=== PATIENT | female | born 1995 | race Caucasian/White ===

== ENCOUNTER 2017-06-15 07:29 | Emergency (ER) | payer SELFPAY ==
[~2017-06-15] VITALS: Ht 157.5 cm; Wt 61.0 kg
[2017-06-15] MEDS ORDERED: IBUPROFEN 600MG TABLET PO STA (08:09)
[2017-06-15 11:15] VITALS: BP 112/78
== END 2017-06-15 11:17 | disposition home or self-care (01) ==
LOC: ER 08:00
DX: S93.402A Sprain of unspecified ligament of left ankle, initial encounter (principal); W10.9XXA Fall (on) (from) unspecified stairs and steps, initial encounter
CPT/HCPCS: 73610; 99284

== ENCOUNTER 2017-12-13 13:37 | Emergency (ER) | payer MEDICAID ==
[~2017-12-13] VITALS: Ht 160 cm; Wt 62.0 kg
[2017-12-13] MEDS ORDERED: IBUPROFEN 600MG TABLET PO ONE (14:45)
[2017-12-13 17:00] VITALS: BP 124/84
== END 2017-12-13 17:06 | disposition home or self-care (01) ==
LOC: ER 13:37
DX: S40.011A Contusion of right shoulder, initial encounter (principal); X58.XXXA Exposure to other specified factors, initial encounter; Y93.89 Activity, other specified; Y92.89 Other specified places as the place of occurrence of the external cause; Y99.8 Other external cause status
CPT/HCPCS: 73030; 81025; 99284

== ENCOUNTER 2018-06-10 00:33 | Emergency (ER) | payer MEDICAID ==
[~2018-06-10] VITALS: Ht 157.5 cm; Wt 68.0 kg
[2018-06-10] MEDS ORDERED: KETOROLAC 30MG/ML VIAL IV STA (02:48)
[2018-06-10] MEDS ORDERED: SODIUM CHLORIDE 0.9% 1,000 ML IV ONE (02:48)
[2018-06-10 03:15] VITALS: BP 123/82
[2018-06-10 03:17] LABS: BASOPHILS % 0.3 % (0.0-2.0); EOSINOPHILS % 2.8 % (0.0-5.0); HEMATOCRIT. 38.4 % (36.0-48.0); LYMPHOCYTES % 27.8 % (20.0-50.0); MEAN CORPUSCULAR HEMOGLOBIN 29.8 pg (28.0-32.0); MEAN CORPUSCULAR VOLUME 88.2 fL (81.0-99.0); MEAN PLATELET VOLUME 7.1 fl (7.4-10.4); MONOCYTES % 9.6 % (2.0-8.0); NEUTROPHILS % 59.5 % (40.0-76.0); PLATELET 286 x1000/uL (130-400); RED BLOOD CELL COUNT 4.35 mill/uL (4.2-5.4); RED CELL DISTRIBUTION WIDTH 13.7 % (11.6-14.6)
[2018-06-10 03:20] LABS: CHLORIDE 107 mEq/L (98-107)
[2018-06-10 03:27] LABS: CLARITY URINE CLOUDY (CLEAR); COLOR URINE YELLOW (YELLOW); KETONES URINE 1+ (NEGATIVE); LEUKOCYTE ESTERASE URINE NEGATIVE (NEGATIVE); NITRITE URINE NEGATIVE (NEGATIVE); OCCULT BLOOD URINE NEGATIVE (NEGATIVE); PROTEIN URINE NEGATIVE (NEGATIVE); SPECIFIC GRAVITY URINE 1.022 (1.005-1.030)
== END 2018-06-10 04:23 | disposition home or self-care (01) ==
LOC: ER 00:33
DX: B34.9 Viral infection, unspecified (principal)
CPT/HCPCS: 36415; 71045; 80048; 81003; 81025; 85025; 96361; 96374; 99284; J1885; J7030

== ENCOUNTER 2024-11-03 21:31 | Emergency (ER) | payer MEDICAID ==
[~2024-11-03] VITALS: Ht 157.5 cm; Wt 64.0 kg
[2024-11-03 21:50] VITALS: O2SAT 98
[2024-11-03] MEDS ORDERED: ONDANSETRON HCL 4MG/2ML INJ IV ONE (22:00)
[2024-11-03] MEDS: METOCLOPRAMIDE HCL 10MG/2ML VIAL IV ONE (22:13)
[2024-11-03] MEDS: SODIUM CHLORIDE 0.9% 1,000 ML IV ONE (22:13)
[2024-11-03] MEDS: KETOROLAC 15MG/ML VIAL IV ONE (22:14)
[2024-11-03] MEDS: DIPHENHYDRAMINE 50MG/ML VIAL IV ONE (22:14)
[2024-11-03 22:58] LABS: BASOPHILS % 0.4 % (0.0-2.0); EOSINOPHILS % 2.4 % (0.0-5.0); HEMATOCRIT. 37.9 % (36.0-48.0); HEMOGLOBIN. 12.8 g/dL (12.0-16.0); LYMPHOCYTES % 35.6 % (20.0-50.0); MEAN PLATELET VOLUME 8.0 fl (7.4-10.4); MONOCYTES % 4.6 % (2.0-8.0); NEUTROPHILS % 57.0 % (40.0-76.0); PLATELET 277 x1000/uL (130-400); RED BLOOD CELL COUNT 4.33 mill/uL (4.2-5.4); RED CELL DISTRIBUTION WIDTH 13.2 % (11.6-14.6)
[2024-11-03 23:11] LABS: CREATININE 0.7 mg/dL (0.6-1.0); HCG SCREEN NEGATIVE
[2024-11-03 23:12] LABS: UREA NITROGEN BLOOD 14 mg/dL (9-23)
[2024-11-04 00:05] VITALS: BP 121/79; PULSE 80; RESP 18; TEMP 37; O2SAT 98
== END 2024-11-04 00:06 | disposition home or self-care (01) ==
LOC: ER 21:31
DX: G43.909 Migraine, unspecified, not intractable, without status migrainosus (principal); E87.6 Hypokalemia
CPT/HCPCS: 99285; 96374; 70450; 96375; 96361; 80048; 84703; 85025; 36415; J1885; J1200; J2765; J7030